=== PATIENT | male | born 1995 | race Caucasian/White ===

== ENCOUNTER 2018-10-22 16:18 | Emergency (ER) | payer SELFPAY ==
[~2018-10-22] VITALS: Ht 167.6 cm; Wt 85.0 kg
[2018-10-22 17:28] VITALS: Ht 167.6 cm; Wt 85.0 kg
[2018-10-22] MEDS ORDERED: ACETAMINOPHEN 325 MG TAB PO ONE (19:30)
[2018-10-22] MEDS ORDERED: ACET500C5 PO (20:25)
[2018-10-22 20:31] VITALS: BP 132/66; PULSE 74; RESP 18
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
== END 2018-10-22 20:32 | disposition home or self-care (01) ==
LOC: EDSEX 16:18 → FTE 16:18
DX: H92.01 Otalgia, right ear (principal); M54.6 Pain in thoracic spine; M25.561 Pain in right knee; M79.604 Pain in right leg; R07.9 Chest pain, unspecified
CPT/HCPCS: 71045; 73562; 81003